=== PATIENT | female | born 1975 ===

== ENCOUNTER 2017-10-13 12:56 | Emergency (ER) | payer MEDICAID ==
[2017-10-13 13:47] VITALS: BMI 44.2
[2017-10-13 13:50] VITALS: BP 121/86; RESP 18; O2SAT 99
[2017-10-13 14:18] VITALS: PULSE 98; TEMP 98.4
--- NOTE | 2017-10-13 14:56 | C.PDOC ---
History Of Present Illness 41 year old female presents to the ED for evaluation of intermittent hot/cold flashes, headache, and sore throat which began yesterday. Patient found relief after taking Tylenol at 0600 today. She presents to the ED with her daughter, who is also a patient and is being evaluated for similar symptoms. Patient denies documented fever, headache, nausea, vomiting, chest pain, cough, shortness of breath. Patient reports history of HTN and "heart problems." Time Seen by Provider: 10/13/17 13:49 Chief Complaint (Nursing): ENT Problem History Per: Patient History/Exam Limitations: no limitations Onset/Duration Of Symptoms: Hrs Current Symptoms Are (Timing): Still Present Location Of Pain: Throat Associated Symptoms: Sore Throat. denies: Fever, Cough, Nausea, Vomiting Additional History Per: Patient Past Medical History Reviewed: Historical Data, Nursing Documentation, Vital Signs Vital Signs: Last Vital Signs Temp 98.4 F 10/13/17 14:06 Pulse 98 H 10/13/17 14:06 Resp 18 10/13/17 14:06 BP 121/86 10/13/17 13:47 Pulse Ox 99 10/13/17 14:59 - Medical History PMH: Anxiety, HTN Surgical History: No Surg Hx Family History: States: Unknown Family Hx - Social History Hx Alcohol Use: No Hx Substance Use: No Review Of Systems Constitutional: Negative for: Fever ENT: Positive for: Throat Pain Cardiovascular: Negative for: Chest Pain Respiratory: Negative for: Cough, Shortness of Breath Gastrointestinal: Negative for: Nausea, Vomiting Neurological: Positive for: Headache Physical Exam - Physical Exam Appears: Non-toxic, No Acute Distress, Other (obese) Skin: Normal Color, Warm, Dry Head: Atraumatic, Normacephalic Eye(s): bilateral: Normal Inspection Ear(s): Bilateral: Normal Nose: Normal, No Discharge Oral Mucosa: Moist Throat: Normal, No Erythema, No Exudate Neck: Supple Chest: Symmetrical, No Deformity, No Tenderness Cardiovascular: Rhythm Regular, No Murmur Respiratory: Normal Breath Sounds, No Rales, No Rhonchi, No Wheezing Extremity: Normal ROM, Capillary Refill (less than 2 seconds ) Neurological/Psych: Oriented x3, Normal Speech, Normal Cognition Gait: Steady ED Course And Treatment O2 Sat by Pulse Oximetry: 99 (on RA) Pulse Ox Interpretation: Normal Medical Decision Making Medical Decision Making: Progress: Motrin PO administered. Disposition Counseled Patient/Family Regarding: Diagnosis, Need For Followup, Rx Given - Disposition Referrals: [facility] [Outside] Disposition: HOME/ ROUTINE Disposition Time: 15:20 Condition: STABLE Prescriptions: Ibuprofen [Motrin] 1 tab PO TID PRN #30 tab PRN Reason: Pain Instructions: Viral Syndrome (ED) Forms: [facility] (Sami), General Discharge Instructions, Work Excuse - POA Present On Arrival: None - Clinical Impression Clinical Impression: Viral syndrome - Scribe Statement The provider has reviewed the documentation as recorded by the Scribe (Stacey Ayers) Provider Attestation: All medical record entries made by the Scribe were at my direction and personally dictated by me. I have reviewed the chart and agree that the record accurately reflects my personal performance of the history, physical exam, medical decision making, and the department course for this patient. I have also personally directed, reviewed, and agree with the discharge instructions and disposition.
== END 2017-10-13 15:35 | disposition home or self-care (01) ==
LOC: C.ER 12:56
DX: B34.9 Viral infection, unspecified (principal)

== ENCOUNTER 2017-11-13 11:06 | Emergency (ER) | payer MEDICAID ==
[2017-11-13 11:17] VITALS: BMI 42.0
[2017-11-13 11:21] VITALS: BP 141/85; PULSE 73; RESP 20; TEMP 97.7; O2SAT 100
[2017-11-13] MEDS ORDERED: Naproxen 550 mg Tab PO STA (11:50)
--- NOTE | 2017-11-13 11:54 | C.PDOC ---
History Of Present Illness 41 yo female c/o left knee pain for 8months. Pt notes that she was seen by "a doctor in [place]", had a "sonogram" done, and was diagnosed with arthritis. She was instructed to take Motrin and "another pill" but it was not helping. Denies trauma, change in sensation, redness, or fever. 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) History/Exam Limitations: no limitations Onset/Duration Of Symptoms: Intermittent Episodes Current Symptoms Are (Timing): Still Present Past Medical History Vital Signs: Last Vital Signs Temp 97.7 F 11/13/17 11:18 Pulse 73 11/13/17 11:18 Resp 20 11/13/17 11:18 BP 141/85 11/13/17 11:18 Pulse Ox 100 11/13/17 12:17 - Medical History PMH: Anxiety, Arthritis, CHF, HTN Family History: States: Unknown Family Hx - Social History Hx Alcohol Use: Yes Hx Substance Use: No - Immunization History Hx Tetanus Toxoid Vaccination: No Hx Influenza Vaccination: No Hx Pneumococcal Vaccination: No Review Of Systems Constitutional: Negative for: Fever Respiratory: Negative for: Shortness of Breath Neurological: Negative for: Weakness, Numbness Physical Exam - Physical Exam Appears: Well, Non-toxic, No Acute Distress Skin: Normal Color, Warm, Dry Head: Atraumatic, Normacephalic Eye(s): bilateral: Normal Inspection, EOMI Nose: Normal Oral Mucosa: Moist Neck: Normal, Normal ROM, Supple Chest: Symmetrical Respiratory: No Accessory Muscle Use Back: Normal Inspection Extremity: Normal ROM, Tenderness (? mild diffuse tenderness ), No Calf Tenderness, Capillary Refill (< 2 sec), No Swelling Extremity: Bilateral: Normal Color And Temperature, Normal ROM Pulses: Left Dorsalis Pedis: Normal, Right Dorsalis Pedis: Normal Neurological/Psych: Oriented x3, Normal Speech, Normal Motor, Normal Sensation ED Course And Treatment O2 Sat by Pulse Oximetry: 100 Progress Note: Pt requests pain medication. Naprosyn ordered and pablo wrap by ultra sound technician. Pt instructed RICE and follow up with ortho in 1-2 days. Disposition - Disposition Referrals: Joceline Locke MD [Staff Provider] - Disposition: HOME/ ROUTINE Disposition Time: 12:15 Condition: STABLE Additional Instructions: Do not take Motrin or other NSAIDS with naprosyn. Vaya a el alex ortopcris márquez giovanny en 1-3 solomon sin falta, para mas evaluacin. Paguate los medicamentos silvio indicado. Prescriptions: Naproxen [Naprosyn] 1 tab PO BID PRN #20 tab PRN Reason: Pain Instructions: Knee Pain (ED) Forms: [facility] (Gabonese) Print Language: SETSWANA - Clinical Impression Clinical Impression: Knee pain, Arthritis
[2017-11-13] MEDS ORDERED: Naproxen 550 mg Tab PO ONE (12:09)
== END 2017-11-13 13:54 | disposition home or self-care (01) ==
LOC: C.ER 11:06
DX: M25.562 Pain in left knee (principal); M19.90 Unspecified osteoarthritis, unspecified site; I50.9 Heart failure, unspecified; I10 Essential (primary) hypertension